=== PATIENT | female | born 1935 | race Caucasian/White ===

== ENCOUNTER → 2020-07-08 09:25 | Outpatient (CLI) | payer MEDICARE, SELFPAY | PROVIDERS: PCP Nurse Practitioner Family; Visit Provider Specialist | DX: C67.8 Malignant neoplasm of overlapping sites of bladder (principal); N39.0 Urinary tract infection, site not specified; N95.2 Postmenopausal atrophic vaginitis; N39.41 Urge incontinence; Z85.51 Personal history of malignant neoplasm of bladder | CPT/HCPCS: 52000; 81002; 87077; 87086; 99213 ==

== ENCOUNTER → 2020-08-26 11:05 | Outpatient (CLI) | payer MEDICARE, SELFPAY | PROVIDERS: PCP Nurse Practitioner Family; Visit Provider Specialist | DX: Z01.818 Encounter for other preprocedural examination (principal); C67.9 Malignant neoplasm of bladder, unspecified; N39.0 Urinary tract infection, site not specified | CPT/HCPCS: 52000; 81002; 87086; 99214 ==

== ENCOUNTER → 2020-08-29 11:57 | Outpatient (CLI) | payer MEDICARE, SELFPAY ==
[2020-08-30 23:44] LABS: COVID19 Sendout Not Detected (Not Detect)
== END ==
PROVIDERS: PCP Nurse Practitioner Family; Referring Provider Specialist; Visit Provider Specialist
DX: Z11.59 Encounter for screening for other viral diseases (principal)
CPT/HCPCS: 87635

== ENCOUNTER 2020-09-01 14:32 | Day surgery (SDC) | payer MEDICARE, SELFPAY ==
[2020-08-28 14:40] VITALS: BMI 41.5
[2020-09-01] VITALS (10 sets, daily range): BP systolic 122–166; BP diastolic 63–89; PULSE 79–98; RESP 9–24; TEMP 36.1–36.6; O2SAT 95–98; BMI 42.9
--- NOTE | 2020-09-01 | PATH_ITS ---
[facility] Accession Number: [id number] . 01 Material submitted: . bladder - LEFT BLADDER FLOOR . 02 Diagnosis: Left Bladder Floor, Transurethral Resection of Bladder Tumor: Scant urothelial tissue fragment with rare papillae. The differential diagnosis includes benign papillary hyperplasia and a benign urothelial papilloma. Negative for atypia or malignancy. Please see comment. MRV 09/04/2020 1614 Local . 02 Comment: Histologic sections demonstrate urothelium with rare, nonbranching, nonfused papillae with no evidence of cytologic atypia or mitotic activity. There is no evidence of urothelial neoplasm. . As part of ongoing chemistry quality control technician, this case is also reviewed by Dr. Curran, who concurs with the given interpretation. . This patient's previous pathology report (Merged With [facility], [facility], [id number]; 10/22/13) is reviewed. . 02 Electronically signed: . Claudia Schmid MD, Pathologist NPI- [id number] . 01 Gross description: . Received in formalin, labeled left bladder floor, and consists of a 0.2 x 0.2 x 0.1 cm amezcua fragment of soft tissue, which is entirely submitted in cassette A1. ([id number]) /MRV 09/02/2020 1352 Local . 02 Pathologist provided ICD-10: Z85.51 . 02 CPT . 781544 Performed at: 01 [facility] [address], [place], [place] [id number] MD Corey Zamorano MD Phone: [phone] Performed at: 02 [facility] [address] [place], [place] [id number] MD Ibis Curran MD Phone: [phone]
[2020-09-01] MEDS: LACTATED RINGERS 1,000 ML 42 ML IV (15:35)
[2020-09-01] MEDS: METOCLOPRAMIDE 10 MG/2 ML INJ IV (15:40)
[2020-09-01] MEDS: FAMOTIDINE 20 MG/50 ML PIGGYBACK 200 MG IV (15:42)
--- NOTE | 2020-09-01 16:19 | PM.PREOP ---
Pre-operative Note Interval Note History & Physical reviewed/Exam performed by Physician: Yes Changes to H&P: No
[2020-09-01] MEDS: CEFAZOLIN VIAL 3 GM in SODIUM CHLORIDE 0.9% 100 ML 200 ML IV (17:04)
--- NOTE | 2020-09-01 17:27 | SUR.OPER ---
Lithotomy on padded OR bed, head on pillow, arms secured on padded arm boards at <90 degrees abduction. Legs secured in padded yellow fins stirrups.
[2020-09-01] MEDS: WATER FOR INJECTION,STERILE 20 ML, mitoMYcin 20 MG INTRAVESIC (17:36)
--- NOTE | 2020-09-01 17:38 | P.OP_ITS ---
Operative Date/Time/Diagnoses Date of procedure: 09/01/20 Time of procedure: 17:39 Pre-op diagnosis: Recurrent papillary bladder cancer Post-op diagnosis: same Procedure & Clinicians Procedure: 1. Transurethral resection of bladder tumor (0.5-2 cm). 2. Cystoscopy and instillation mitomycin-C (20 mg). Same procedure as scheduled: Yes Indications: 1. Recurrent papillary neoplasm left anterior floor Surgeon: Lala Winchester Click Yes if Unassisted: Yes Anesthesia Type: General Operative Notes Findings: There is a papillary neoplasm of approximately 1 cm sized situated at the left anterior floor very near the margin of the bladder neck at approximately 7 o'clock. Closure Type: not applicable Specimen(s): other (Bladder tumor) Applied: catheter (Sixteen Palestinian Umana) Estimated Blood Loss (mL): 0 Blood products transfused: none Tourniquet time (min): 0 Procedure in detail: Patient was positioned supine was administered general anesthesia. She was then repositioned semi lithotomy and the lower abdomen genitalia and groin were prepped and draped in sterile fashion. The 24 Palestinian resectoscope was then passed lower urinary tract with the findings as described above. Using the cold cup biopsy forceps a generous sample was obtained from the central portion of the lesion. Next, the Bugbee cautery was prepared. The resectoscope was removed and the panendoscope was introduced lower urinary tr act. The remaining tumor, tumor base and surrounding urothelium was cautery destroyed. Hemostasis was excellent. The bladder was then left partially filled and the panendoscope was removed. A 16 Palestinian Umana catheter was then inserted into the bladder and the balloon was inflated 10 cc. The bladder contents were drained completely. Now a solution of 20 cc of sterile saline with 20 mg of mitomycin C in suspension was instilled through the Umana catheter into the bladder for anticipated 2 hour retention. The patient was then repositioned in supine, was awakened, and was transferred to [facility] in stable condition. Complications: none Post-operative Condition: stable Disposition: PACU Plan for aftercare: Discharge home
[2020-09-01] MEDS: BELLADONNA/OPIUM SUPPOSITORIES 1 EACH PR (17:51)
--- NOTE | 2020-09-01 20:02 | SUR.PHASEII ---
Lawton catheter unplugged at 1944 per MD order. Placed lawton catheter to gravity drainage after unplugged at 194. At completion of drainage, 250 cc of clear yellow urine in catheter bag. Lawton catheter dc'd after 10ml of water removed from balloon, pt tolerated procedure well. pt ambulated to the bathroom after catheter dc'd with sba assist. pt dressed herself without any difficultly. pt dc to home with granddaughter in stable condition.
== END 2020-09-01 20:08 | disposition home or self-care (01) ==
PROVIDERS: PCP Nurse Practitioner Family; Referring Provider Nurse Practitioner Family; Visit Provider Specialist
PROC: 0TBB8ZZ Excision of Bladder, Via Natural or Artificial Opening Endoscopic (ICD-10-PCS; CPT 52234; principal; 2020-09-01 16:00)
DX: C67.9 Malignant neoplasm of bladder, unspecified (principal); Z11.59 Encounter for screening for other viral diseases; J45.909 Unspecified asthma, uncomplicated; I10 Essential (primary) hypertension; G47.33 Obstructive sleep apnea (adult) (pediatric)
CPT/HCPCS: 52234; 87635; J0690; J2405; J2704; J2765; J3010; J9280